=== PATIENT | male | born 1950 | race Caucasian/White ===

== ENCOUNTER → 2018-08-21 | Emergency (ER) | payer OTHER ==
[~2018-08-21] VITALS: Ht 162.6 cm; Wt 89.4 kg
[~2018-08-21] MED LIST: ATENOLOL100 MG; COZAAR50 MG; ENALAPRIL MALEA20 MG; FISH OIL 1,001000 MG; FOSAMAX70 MG; GEMFIBROZIL600 MG; GLIMEPIRIDE4 MG; HYDROCHLOROTH12.5 MG; LIPITOR20 MG; METFORMIN HCL1000 MG; NEURONTIN800 MG; PROAIR RESPICL90 MCG; PROZAC20 MG; SIMVASTATIN10 MG; TAMS0.4C
== END | disposition left against medical advice (07) ==
LOC: ER 14:45
DX: S20.212A Contusion of left front wall of thorax, initial encounter (principal); G89.11 Acute pain due to trauma; M54.5 Low back pain; W01.198A Fall on same level from slipping, tripping and stumbling with subsequent striking against other object, initial encounter; Y93.89 Activity, other specified; Y92.89 Other specified places as the place of occurrence of the external cause; Y99.8 Other external cause status

== ENCOUNTER 2020-08-28 17:48 | Emergency (ER) | payer OTHER ==
[~2020-08-28] VITALS: Ht 162.6 cm; Wt 90.7 kg
[2020-08-28] MEDS ORDERED: FLOVENT HFA10.6 GM (18:10)
[2020-08-28] MEDS ORDERED: RESTORIL15 M1 (18:10)
== END 2020-08-28 20:48 | disposition home or self-care (01) ==
LOC: ER 17:48
DX: M47.894 Other spondylosis, thoracic region (principal); M54.5 Low back pain; M79.18 Myalgia, other site